=== PATIENT | female | born 1950 | race Caucasian/White ===

== ENCOUNTER 2017-03-21 11:02 | Inpatient (IN) | payer MEDICARE, MEDICAID ==
[~2017-03-21] VITALS: Ht 152.4 cm; Wt 67.1 kg
[2017-03-21] VITALS (13 sets, daily range): BP systolic 77–104; BP diastolic 20–66
[2017-03-21] MEDS ORDERED: IV NS 0.9% 1,000 ML BAG IV ONE ×2 (13:30→15:30)
[2017-03-21] MEDS ORDERED: ADENOSINE 6 MG/2 ML VIAL IVP ONE ×3 (13:30→15:00)
[2017-03-21] MEDS ORDERED: ADENOSINE 6 MG/2 ML VIAL ONE ×2 (13:34→14:22)
[2017-03-21 13:47] LABS: BASOPHILS # (AUTO) 0.1 /CMM (0.0-0.2); BASOPHILS % (AUTO) 0.5 % (0.0-2.0); EOSINOPHILS # (AUTO) 0.1 /CMM (0.0-0.7); EOSINOPHILS % (AUTO) 0.5 % (0.0-6.0); HEMATOCRIT 50 % (33-45); HEMOGLOBIN 16.6 g/dL (11.5-14.8); LYMPHOCYTES # (AUTO) 1.4 /CMM (0.8-4.8); LYMPHOCYTES % (AUTO) 11.5 % (20.0-44.0); MEAN CORPUSCULAR HEMOGLOBIN 29 PG (26.0-33.0); MEAN CORPUSCULAR HGB CONC 33 g/dl (31.0-36.0); MEAN CORPUSCULAR VOLUME 87 fL (82-100); MONOCYTES # (AUTO) 0.5 /CMM (0.1-1.30); MONOCYTES % (AUTO) 4.5 % (2.0-12.0); NEUTROPHILS # (AUTO) 9.8 /CMM (1.8-8.9); PLATELET COUNT (AUTO) 226 /CMM (150-450); RDW COEFFICIENT OF VARIATION 12.3 (11.5-15.0); RED BLOOD CELL COUNT(AUTO) 5.75 MIL/uL (4.0-5.2); WHITE BLOOD COUNT (AUTO) 11.9 K/uL (4.3-11.0)
[2017-03-21 13:56] LABS: CALCIUM, SERUM 9.5 mg/dL (8.5-10.1); CARBON DIOXIDE 21 mmol/L (21-32); CHLORIDE 106 mmol/L (98-107); CREATININE 1.1 mg/dL (0.6-1.3); GLUCOSE 187 mg/dL (74-106); POTASSIUM 4.3 mmol/L (3.5-5.1); SODIUM SERUM 139 mmol/L (136-145); UREA NITROGEN, BLOOD 25 mg/dL (7-18)
[2017-03-21 14:00] LABS: INR 0.98 (0.87-1.13); PROTHROMBIN TIME 10.2 SECS (9.5-12.7)
[2017-03-21 14:06] LABS: TROPONIN I < 0.017 ng/mL (0.00-0.056)
[2017-03-21] MEDS ORDERED: ACETAMINOPHEN 325 MG TABLET PO PRN (15:00)
[2017-03-21] MEDS ORDERED: MAG HYDROX/AL HYDROX/SIMETH 30 ML UDC PO PRN (15:00)
[2017-03-21] MEDS ORDERED: ONDANSETRON HCL/PF 4 MG/2 ML VIAL IVP PRN (15:00)
[2017-03-21] MEDS ORDERED: DILTIAZEM HCL IV 125 MG in IV D5W 100 ML IV PRN ×2 (15:00→15:30)
[2017-03-21] MEDS ORDERED: HYDROCODONE/APAP 5/325MG 1 EACH TABLET PO PRN (15:00)
[2017-03-21] MEDS ORDERED: ZOLPIDEM TARTRATE 5 MG TABLET PO PRN (15:00)
[2017-03-21] MEDS ORDERED: MAGNESIUM HYDROXIDE 30 ML UDC PO PRN (15:00)
[2017-03-21] MEDS ORDERED: DILTIAZEM HCL 25 MG IV ONE (15:09)
[2017-03-21] MEDS ORDERED: CALC500T71 PO (15:29)
[2017-03-21] MEDS ORDERED: ALEN70TA3 PO (15:29)
[2017-03-21] MEDS ORDERED: SIMV20TA6 PO (15:29)
[2017-03-21] MEDS ORDERED: METO50TA3 PO (15:29)
[2017-03-21] MEDS ORDERED: ASPI81TA2 PO (15:29)
[2017-03-21] MEDS ORDERED: ERGO400C PO (15:29)
[2017-03-21] MEDS ORDERED: OMEG1CAP55 PO (15:29)
[2017-03-21] MEDS ORDERED: AMIODARONE 900 MG in IV D5W 482 ML IV PRN ×2 (15:30→19:30)
[2017-03-21] MEDS ORDERED: AMIODARONE 150 MG/3 ML VIAL IV ONE (15:30)
[2017-03-21] MEDS ORDERED: AMIODARONE 150 MG in IV D5W 100 ML IV ONE (15:30)
[2017-03-21] MEDS ORDERED: DILTIAZEM HCL 25 MG IV IV ONE (15:30)
[2017-03-21] MEDS ORDERED: ENOXAPARIN SODIUM 40 MG/0.4 ML DISP.SYRIN SQ SCH (16:06)
[2017-03-21] MEDS ORDERED: SIMVASTATIN 20 MG TABLET ONE (21:07)
[2017-03-21] MEDS: SIMVASTATIN 20 MG TABLET PO SCH (21:13)
[2017-03-22] VITALS (14 sets, daily range): BP systolic 92–141; BP diastolic 55–73
[2017-03-22 05:01] LABS: BASOPHILS % (AUTO) 0.3 % (0.0-2.0); EOSINOPHILS # (AUTO) 0.1 /CMM (0.0-0.7); EOSINOPHILS % (AUTO) 0.7 % (0.0-6.0); HEMATOCRIT 41 % (33-45); HEMOGLOBIN 13.9 g/dL (11.5-14.8); LYMPHOCYTES # (AUTO) 1.2 /CMM (0.8-4.8); LYMPHOCYTES % (AUTO) 13.8 % (20.0-44.0); MEAN CORPUSCULAR HEMOGLOBIN 30 PG (26.0-33.0); MEAN CORPUSCULAR HGB CONC 34 g/dl (31.0-36.0); MEAN CORPUSCULAR VOLUME 88 fL (82-100); MONOCYTES # (AUTO) 0.7 /CMM (0.1-1.30); MONOCYTES % (AUTO) 7.8 % (2.0-12.0); NEUTROPHILS # (AUTO) 6.9 /CMM (1.8-8.9); NEUTROPHILS % (AUTO) 77.4 % (43.0-81.0); PLATELET COUNT (AUTO) 126 /CMM (150-450); RDW COEFFICIENT OF VARIATION 13.3 (11.5-15.0); RED BLOOD CELL COUNT(AUTO) 4.69 MIL/uL (4.0-5.2); WHITE BLOOD COUNT (AUTO) 8.9 K/uL (4.3-11.0)
[2017-03-22 05:21] LABS: CALCIUM, SERUM 8.4 mg/dL (8.5-10.1); CREATININE 0.7 mg/dL (0.6-1.3); POTASSIUM 3.7 mmol/L (3.5-5.1)
[2017-03-22 05:24] LABS: THYROID STIMULATING HORMONE 1.814 uIU/mL (0.358-3.74)
[2017-03-22] MEDS: ENOXAPARIN SODIUM 40 MG/0.4 ML DISP.SYRIN SQ SCH (08:13)
[2017-03-22] MEDS: AMIODARONE HCL 200 MG TABLET PO SCH ×3 (09:00→16:43)
[2017-03-22] MEDS: SIMVASTATIN 20 MG TABLET PO SCH (21:02)
[2017-03-23] VITALS (7 sets, daily range): BP systolic 106–120; BP diastolic 63–85
[2017-03-23] MEDS: AMIODARONE HCL 200 MG TABLET PO SCH ×3 (05:20→17:51)
[2017-03-23] MEDS ORDERED: ADENOSINE 6 MG/2 ML VIAL ONE (05:45)
[2017-03-23] MEDS ORDERED: ADENOSINE 6 MG/2 ML VIAL IVP ONE (06:00)
[2017-03-23] MEDS ORDERED: METOPROLOL TARTRATE INJ 5 MG/5 ML AMPUL ONE (06:16)
[2017-03-23] MEDS ORDERED: METOPROLOL TARTRATE INJ 5 MG/5 ML AMPUL IVP ONE ×3 (06:30→06:40)
[2017-03-23 07:39] LABS: BASOPHILS % (AUTO) 0.1 % (0.0-2.0); EOSINOPHILS % (AUTO) 0.2 % (0.0-6.0); HEMATOCRIT 38 % (33-45); LYMPHOCYTES # (AUTO) 0.8 /CMM (0.8-4.8); LYMPHOCYTES % (AUTO) 10.1 % (20.0-44.0); MEAN CORPUSCULAR HEMOGLOBIN 30 PG (26.0-33.0); MEAN CORPUSCULAR HGB CONC 34 g/dl (31.0-36.0); MEAN CORPUSCULAR VOLUME 88 fL (82-100); MONOCYTES # (AUTO) 0.8 /CMM (0.1-1.30); MONOCYTES % (AUTO) 9.5 % (2.0-12.0); NEUTROPHILS # (AUTO) 6.6 /CMM (1.8-8.9); NEUTROPHILS % (AUTO) 80.1 % (43.0-81.0); PLATELET COUNT (AUTO) 109 /CMM (150-450); RDW COEFFICIENT OF VARIATION 13.4 (11.5-15.0); RED BLOOD CELL COUNT(AUTO) 4.37 MIL/uL (4.0-5.2); WHITE BLOOD COUNT (AUTO) 8.2 K/uL (4.3-11.0)
[2017-03-23 08:15] LABS: CALCIUM, SERUM 8.2 mg/dL (8.5-10.1); CREATININE 0.6 mg/dL (0.6-1.3); POTASSIUM 3.5 mmol/L (3.5-5.1)
[2017-03-23] MEDS: ENOXAPARIN SODIUM 40 MG/0.4 ML DISP.SYRIN SQ SCH (08:59)
[2017-03-23] MEDS: METOPROLOL TARTRATE 50 MG TABLET PO SCH ×2 (12:31→17:52)
[2017-03-23] MEDS: SIMVASTATIN 20 MG TABLET PO SCH (21:17)
[2017-03-24] VITALS: BP 125/63
[2017-03-24] MEDS: METOPROLOL TARTRATE 50 MG TABLET PO SCH ×2 (01:20→05:29)
[2017-03-24 04:00] VITALS: BP 122/62
[2017-03-24 06:18] LABS: CALCIUM, SERUM 8.5 mg/dL (8.5-10.1); CREATININE 0.6 mg/dL (0.6-1.3); POTASSIUM 3.9 mmol/L (3.5-5.1)
[2017-03-24 08:00] VITALS: BP 113/67
[2017-03-24 08:57] VITALS: BP 113/67
[2017-03-24] MEDS: AMIODARONE HCL 200 MG TABLET PO SCH (08:57)
[2017-03-24] MEDS: ENOXAPARIN SODIUM 40 MG/0.4 ML DISP.SYRIN SQ SCH (08:58)
== END 2017-03-24 13:24 | disposition home or self-care (01) | DRG 281 ==
LOC: ER 11:03 → ICU 16:03 → TELE-TD 03-22 09:44 → MEDSG1 03-24 10:19
DX: I21.A1 Myocardial infarction type 2 (principal); I47.1 Supraventricular tachycardia; E86.0 Dehydration; D72.829 Elevated white blood cell count, unspecified; E66.9 Obesity, unspecified; E78.5 Hyperlipidemia, unspecified; I10 Essential (primary) hypertension; M81.0 Age-related osteoporosis without current pathological fracture; R79.89 Other specified abnormal findings of blood chemistry; R73.9 Hyperglycemia, unspecified; Z68.28 Body mass index [BMI] 28.0-28.9, adult
CPT/HCPCS: 36415; 71010-TC; 80048-TC; 80061-TC; 80305; 83735-TC; 83880; 84100-TC; 84443-TC; 84484-TC; 85025-TC; 85730-TC; 87081-TC; 93307-TC; A4606; J0153; J0282; J1650; J3490; J7030; J7060; Z7610